=== PATIENT | female | born 1970 | race Caucasian/White ===

== ENCOUNTER → 2016-08-08 | Outpatient (CLI) | payer OTHER ==
[~2016-08-08] MED LIST: ALPRAZOLAM; LORTAB 5/500 501 TAB PO
== END ==
LOC: BHSO 15:02
DX: F31.81 Bipolar II disorder (principal)

== ENCOUNTER → 2016-11-28 | Outpatient (CLI) | payer OTHER | LOC: BHSO 14:43 | DX: Z53.8 Procedure and treatment not carried out for other reasons (principal) ==

== ENCOUNTER → 2017-02-22 | Outpatient (CLI) | payer OTHER | LOC: COL.RAD 02-21 16:09 | DX: C50.412 Malignant neoplasm of upper-outer quadrant of left female breast (principal) | CPT/HCPCS: A9541 ==

== ENCOUNTER → 2017-02-27 | Outpatient (CLI) | payer OTHER | LOC: BHSO 14:02 | DX: F31.81 Bipolar II disorder (principal) ==

== ENCOUNTER → 2017-03-28 | Outpatient (CLI) | payer OTHER | LOC: COL.VAS 12:17 | DX: Z51.81 Encounter for therapeutic drug level monitoring (principal); C50.412 Malignant neoplasm of upper-outer quadrant of left female breast; Z79.899 Other long term (current) drug therapy ==

== ENCOUNTER → 2017-05-26 | Outpatient (CLI) | payer OTHER | LOC: BHSO 15:19 | DX: F31.81 Bipolar II disorder (principal) | CPT/HCPCS: G0463 ==

== ENCOUNTER → 2017-06-26 | Outpatient (CLI) | payer OTHER | LOC: BHSO 14:57 | DX: F31.81 Bipolar II disorder (principal) | CPT/HCPCS: G0463 ==

== ENCOUNTER → 2017-08-24 | Outpatient (CLI) | payer OTHER | LOC: BHSO 15:18 | DX: F31.81 Bipolar II disorder (principal) | CPT/HCPCS: G0463 ==

== ENCOUNTER → 2017-09-26 | Outpatient (CLI) | payer OTHER | LOC: BHSO 11:42 | DX: F31.81 Bipolar II disorder (principal) | CPT/HCPCS: G0463 ==

== ENCOUNTER → 2017-11-28 | Outpatient (CLI) | payer OTHER | LOC: BHSO 14:39 | DX: F31.81 Bipolar II disorder (principal) ==

== ENCOUNTER → 2018-02-20 | Outpatient (CLI) | payer OTHER | LOC: BHSO 13:59 | DX: F31.81 Bipolar II disorder (principal) | CPT/HCPCS: G0463 ==

== ENCOUNTER → 2018-03-28 | Outpatient (CLI) | payer OTHER | LOC: COL.RAD 08:55 | DX: C50.412 Malignant neoplasm of upper-outer quadrant of left female breast (principal); J84.10 Pulmonary fibrosis, unspecified; J18.1 Lobar pneumonia, unspecified organism; K76.0 Fatty (change of) liver, not elsewhere classified; N20.0 Calculus of kidney; N28.1 Cyst of kidney, acquired; N85.8 Other specified noninflammatory disorders of uterus; Z98.890 Other specified postprocedural states | CPT/HCPCS: A9503; Q9967 ==

== ENCOUNTER 2018-04-18 13:00 | Outpatient (RCR) | payer OTHER | END 2018-05-06 | disposition home or self-care (01) | LOC: WSPT | DX: M25.511 Pain in right shoulder (principal); M25.562 Pain in left knee; M25.561 Pain in right knee; M25.572 Pain in left ankle and joints of left foot; M25.571 Pain in right ankle and joints of right foot; Z85.3 Personal history of malignant neoplasm of breast; Z92.3 Personal history of irradiation; Z92.21 Personal history of antineoplastic chemotherapy; Z90.12 Acquired absence of left breast and nipple; Z79.899 Other long term (current) drug therapy; F17.290 Nicotine dependence, other tobacco product, uncomplicated | CPT/HCPCS: G8978-GP; G8979-GP ==

== ENCOUNTER → 2018-05-22 | Outpatient (CLI) | payer OTHER | LOC: BHSO 14:18 | DX: F31.81 Bipolar II disorder (principal) | CPT/HCPCS: G0463 ==

== ENCOUNTER → 2018-09-18 | Outpatient (CLI) | payer OTHER | LOC: BHSO 14:21 | DX: F31.81 Bipolar II disorder (principal) | CPT/HCPCS: G0463 ==

== ENCOUNTER → 2019-03-25 | Outpatient (CLI) | payer OTHER | LOC: BHSO 11:42 | DX: F31.81 Bipolar II disorder (principal) | CPT/HCPCS: G0463 ==

== ENCOUNTER → 2019-06-03 | Outpatient (CLI) | payer OTHER | LOC: BHSO 14:24 | DX: F31.81 Bipolar II disorder (principal) | CPT/HCPCS: G0463 ==

== ENCOUNTER → 2019-10-21 | Outpatient (CLI) | payer OTHER | LOC: BHSO 14:03 | DX: F31.81 Bipolar II disorder (principal) | CPT/HCPCS: G0463 ==

== ENCOUNTER 2019-11-07 18:52 | Observation (INO) | payer OTHER ==
[~2019-11-07] VITALS: Ht 165.1 cm; Wt 113.5 kg
--- NOTE | 2019-11-07 20:48 | NUR ---
PT ARRIVES PER EMS. SETTLED IN BED.
[2019-11-07 20:56] VITALS: BP 113/85; PULSE 73; TEMP 97.8
[2019-11-07] MEDS ORDERED: TAMOXIFEN CITRA20 MG PO (21:14)
[2019-11-07] MEDS ORDERED: DRISDOL50000 IU PO (21:14)
[2019-11-07] MEDS ORDERED: SEROQUEL 200MG200 MG PO (21:15)
[2019-11-07] MEDS ORDERED: XANAX 0.5MG0.5 MG PO (21:15)
[2019-11-07] MEDS ORDERED: EFFEXOR XR75 MG/CAP PO (21:16)
[2019-11-07] MEDS ORDERED: PRINIVIL5 MG PO (21:19)
[2019-11-07] MEDS ORDERED: EFFEXOR-XR150 MG PO (21:19)
[2019-11-07] MEDS ORDERED: CRESTOR 10MG10 MG PO (21:20)
[2019-11-07] MEDS ORDERED: ATARAX 25MG25 MG/TAB PO (21:21)
--- NOTE | 2019-11-07 22:21 | NUR ---
NEW ORDERS RECEIVED AFTER DR DICK VISIT. MEDICATED WITH MORPHINE 2MG IVP WITH TRAMADOL 100MG AND SCHEDULED ES TYLENOL. PT EATING TURKEY SANDWICH AND DRINKING ICE WATER WITHOUT N/V. IVF INFUSING TO RIGHT AC WITHOUT PROBLEM.
[2019-11-07 23:51] VITALS: BP 129/74; PULSE 85; TEMP 97.7
[2019-11-08] VITALS (11 sets, daily range): BP systolic 140–163; BP diastolic 62–116; PULSE 63–87; TEMP 97.7–98
--- NOTE | 2019-11-08 01:00 | NUR ---
PT REPORTS PAIN 8/10 TO RT FLANK, MEDICATED WITH SCHEDULED TORADOL IV AND MORPHINE 2MG IVP NOW. NEW ORDER FOR SALINE NASAL SPRAY.
--- NOTE | 2019-11-08 05:00 | NUR ---
Up to bathroom, voids without problem. Denies need for pain meds at this time.
--- NOTE | 2019-11-08 07:12 | NUR ---
Lying in bed in supine position with eyes open. Patient having some pain but nothing to bad at this time. Is aware that she will be going for procedure this morning, consent has already been signed. Patient denies needs at this time.
--- NOTE | 2019-11-08 08:51 | NUR ---
Patient to surgery via bed at this time.
--- NOTE | 2019-11-08 10:15 | NUR ---
Patient to room via bed from PACU. Alert, oriented. Has oxygen on at 3.5L/NC. Denies any additional concerns or needs at this time.
--- NOTE | 2019-11-08 14:05 | NUR ---
Reviewed discharge instructions with the patient. Questions answered. Patient verbalizes understanding and signs discharge paperwork. Discharge packet provided to the patient. Patient will notify staff when her ride is here to pick her up.
--- NOTE | 2019-11-08 14:21 | NUR ---
Patient calls and explains that her ride is here to pick her up. Patient taken out to POV via wheel chair.
== END 2019-11-08 14:26 | disposition home or self-care (01) ==
LOC: MEDICAL 18:52 → SURG 20:43
PROVIDERS: ADMIT Urology
DX: N20.1 Calculus of ureter (principal); E11.9 Type 2 diabetes mellitus without complications; I10 Essential (primary) hypertension; I73.9 Peripheral vascular disease, unspecified; F41.9 Anxiety disorder, unspecified; Z85.3 Personal history of malignant neoplasm of breast; Z92.21 Personal history of antineoplastic chemotherapy; Z92.3 Personal history of irradiation; Z79.899 Other long term (current) drug therapy; Z87.891 Personal history of nicotine dependence
CPT/HCPCS: A9284; C1769; C2617; J0690; J1885; J2270; J2405; J2704; J3010; J7120; Q9967

== ENCOUNTER → 2020-01-21 | Outpatient (CLI) | payer OTHER ==
[~2020-01-21] MED LIST changes: +ATARAX 25MG25 MG/TAB PO; +CRESTOR 10MG10 MG PO; +DRISDOL50000 IU PO; +EFFEXOR XR75 MG/CAP PO; +EFFEXOR-XR150 MG PO; +PRINIVIL5 MG PO; +SEROQUEL 200MG200 MG PO; +TAMOXIFEN CITRA20 MG PO; +XANAX 0.5MG0.5 MG PO
== END ==
LOC: BHSO 15:43
DX: F31.81 Bipolar II disorder (principal)
CPT/HCPCS: G0463